=== PATIENT | female | born 1990 | race Caucasian/White ===

== ENCOUNTER 2016-07-29 19:55 | Emergency (ER) | payer BC ==
[~2016-07-29] VITALS: Ht 160 cm; Wt 80.0 kg
[~2016-07-29 19:55] MED LIST: MOTRIN600 MG PO; NORCO 7.5/321 TABLET PO
[2016-07-29 22:15] LABS: ADD MIUA? YES; BILIRUBIN NEGATIVE; BLOOD NEGATIVE; COLOR YELLOW ((YELLOW)); GLUCOSE (STRIP) NEGATIVE; KETONES NEGATIVE; LEUKOCYTES TRACE; NITRITE NEGATIVE; PROTEIN (STRIP) NEGATIVE; SPECIFIC GRAVITY 1.016 (1.000-1.030); UROBILINOGEN 0.2 MG/DL (0.2-1.0)
[2016-07-29 22:20] LABS: BACTERIA 2+ /HPF; EPITHELIAL CELLS RARE /HPF; MUCUS TRACE /LPF; RED BLOOD CELLS NONE SEEN /HPF (0-5); WHITE BLOOD CELLS 0-5 /HPF (0-5)
[2016-07-29] MEDS ORDERED: FLEXERIL10 MG PO (23:07)
[2016-07-29] MEDS ORDERED: MEDROL DOSEPAK4 MG PO (23:07)
[2016-07-29] MEDS ORDERED: LIDODERM 5% P1 PATCH TD (23:07)
[2016-07-29 23:47] VITALS: BP 134/97
== END 2016-07-29 23:48 | disposition home or self-care (01) ==
LOC: EME 19:55
PROVIDERS: Nurse Practitioner Family
DX: S33.5XXA Sprain of ligaments of lumbar spine, initial encounter (principal); X50.9XXA Other and unspecified overexertion or strenuous movements or postures, initial encounter; M54.16 Radiculopathy, lumbar region; R00.0 Tachycardia, unspecified
CPT/HCPCS: 81003; 99281; 99284; J1885; J7512

== ENCOUNTER 2016-09-22 05:00 | Emergency (ER) | payer BC ==
[~2016-09-22] VITALS: Ht 160 cm; Wt 79.0 kg
[~2016-09-22 05:00] MED LIST changes: +FLEXERIL10 MG PO; +LIDODERM 5% P1 PATCH TD; +MEDROL DOSEPAK4 MG PO
[2016-09-22 05:50] LABS: HEMATOCRIT 39.3 % (36.0-46.0); MCH 28.2 PG (29.0-34.0); MCHC 34.4 G/DL (30.0-36.0); PLATELET COUNT 220 K/uL (156-360); RBC DIS.WIDTH-CV 12.7 % (11.8-14.6); RBC DIS.WIDTH-SD 38.1 % (39-53); RED BLOOD COUNT 4.79 M/uL (3.80-5.20); WHITE BLOOD COUNT 9.9 K/uL (4.1-10.2)
[2016-09-22 06:05] LABS: CHLORIDE 105 mEq/L (99-109); POTASSIUM 3.8 mEq/L (3.7-5.4); SODIUM 138 mEq/L (136-147)
[2016-09-22 06:06] LABS: GLUCOSE 105 mg/dL (70-99)
[2016-09-22 06:08] LABS: ANION GAP 10 MEQ/L (2-14)
[2016-09-22 06:10] LABS: GFR ESTIMATE (CALCULATED) > 59 mL/min/
[2016-09-22 06:11] LABS: UREA NITROGEN (BUN) 7 mg/dL (9-23)
[2016-09-22 06:38] LABS: QUANTITATIVE HCG 33024.5 MIU/ML
[2016-09-22 11:13] VITALS: BP 131/79
== END 2016-09-22 11:14 | disposition home or self-care (01) ==
LOC: EME 05:00
PROVIDERS: Physician Assistant
DX: O03.4 Incomplete spontaneous abortion without complication (principal); R11.0 Nausea; Z3A.01 Less than 8 weeks gestation of pregnancy
CPT/HCPCS: 76801; 80048; 84702; 85027; 86900; 86901; 99281; 99284